=== PATIENT | female | born 1950 | race African-American/Black ===

== ENCOUNTER 2019-11-09 14:51 | Emergency (ER) | payer SELFPAY ==
[2019-11-09 15:03] VITALS: BP 193/99; PULSE 91; TEMP 99.5; BMI 29.0
[2019-11-09] MEDS ORDERED: amLODIPine BESYLATE 5 MG TABLET (FP) PO ONE (15:03)
--- NOTE | 2019-11-09 15:03 | PDOC ---
Rapid Medical Evaluation Chief Complaint: Blood Pressure Problem Time Seen by Provider: 11/09/19 15:00 Medical Evaluation: Allergies Allergy/AdvReac Type Severity Reaction Status Date / Time No Known Allergies Allergy Verified 11/09/19 14:57 11/09/19 15:00 I have performed a brief in-person evaluation of this patient. The patient presents with a chief complaint of: h/o HTN on Ibesartan 150mg and amlodipine 5mg present for refill of blood pressure meds as she is visiting from [place] and ran out of her meds. Denies any symptoms Pertinent physical exam findings: A&O x 3 in NAD. elevated BP 193/99. heart RRR. Lungs CTAB I have ordered the following: amlodipine, The patient will proceed to the ED for further evaluation. Discharge Disposition - Diagnosis Essential hypertension - Discharge Dispostion Condition at time of disposition: Stable - Referrals - Patient Instructions - Post Discharge Activity
--- NOTE | 2019-11-09 15:16 | PDOC ---
History of Present Illness - General Chief Complaint: Blood Pressure Problem Stated Complaint: EVALUATION Time Seen by Provider: 11/09/19 15:00 History Source: Patient Exam Limitations: No Limitations - History of Present Illness Initial Comments: 11/09/19 15:19 69 year old female with Pmhx of HTN DM presenting for medication refill. Pt has been visiting her daughter from [facility] and has run out of meds due to not being able to return home. Pt has been out of meds for 4 days. Pt is currently taking Irbesartan 150 mg HS and Amlodpine 5mg HS for HTN and Metformin for DM 1 000mg BID. Pt has been on these meds for 5 years. Pt has no complaints related to HTN emergency or DKA. Pt otherwise denies: fevers, chills, syncope, lightheadedness, dizziness, headaches, changes in vision, changes in hearing, neck pain, chest pain, shortness of breath, palpitations, back pain, abdominal pain, nausea, vomiting, diarrhea, constipation, melena, hematochezia, dysuria, hematuria, increased urinary frequency/urgency, vaginal bleeding, vaginal discharge. Past History - Medical History Allergies/Adverse Reactions: Allergies Allergy/AdvReac Type Severity Reaction Status Date / Time No Known Allergies Allergy Verified 11/09/19 14:57 Home Medications: Ambulatory Orders Amlodipine Besylate 5 mg PO HS #30 tablet 11/09/19 Irbesartan 150 mg PO HS #30 tablet 11/09/19 Metformin HCl [Glucophage] 1,000 mg PO BID #60 tablet 11/09/19 - Psycho-Social/Smoking History Smoking History: Never smoked Information on smoking cessation initiated: No - Substance Abuse Hx (Audit-C & DAST Scrn) How often the patient has a drink containing alcohol: Never Score: In Men: 4 or > Positive; In Women: 3 or > Positive: 0 Screen Result (Pos requires Nsg. Audit-10AR): Negative Review of Systems - Review of Systems Constitutional: No: Chills, Fever, Night Sweats HEENTM: No: Blurred Vision, Double Vision Respiratory: No: Orthopnea, Shortness of Breath Cardiac (ROS): No: Chest Pain ABD/GI: No: Abdominal Distended, Diarrhea, Nausea, Vomiting : No: Dysuria Musculoskeletal: No: Back Pain, Joint Pain Integumentary: No: Bruising, Change in Color Neurological: No: Headache, Numbness, Paresthesia, Seizure, Dizziness *Physical Exam - Vital Signs Last Vital Signs Temp Pulse Resp BP Pulse Ox 99.5 F 91 H 16 193/99 H 99 11/09/19 14:58 11/09/19 14:58 11/09/19 14:58 11/09/19 14:58 11/09/19 14:58 - Physical Exam 11/09/19 15:28 Gen: AAOx 3, no acute distress, comfortable, no signs of respiratory distress HENT: atraumatic, normocephalic with no laceration or contusion. Nasal mucosa without erythema. Oropharynx without erythema or exudates. Mucous membranes moist. EYES: PERRL, EOM intact, conjunctiva pink NECK: supple; trachea midline; no JVD, no lymphadenopathy, or thyromegaly CV: RRR no murmurs, gallops, or rubs. CHEST: CTA b/l no wheezing, rales or rhonchi ABD: +BS/ND. no TTP; soft, no rebound, no guarding EXTREMITY: no cyanosis or erythema. 2+ dorsalis pedis, posterior tibial, and radial pulse. No pedal edema; no calf swelling or tenderness SKIN: no rash, warm and dry, no diaphoresis HEME: no purpura or ecchymosis NEURO: normal speech, CN II-XII intact, sensation intact, normal gait, no cerebellar deficits MS: 5/5 strength in all extremities, FROM intact in all extremities. Medical Decision Making - Medical Decision Making 11/09/19 15:28 69-year-old female past medical history hypertension diabetes coming in for medication refill patient is hypertensive to 193/99 5 mg amlodipine given in the ED patient is asymptomatic at this time in the ED with no signs of hypertension emergency or urgency Rest of vital signs stable Patient safe and stable for discharge with follow-up with dye weigher either here or at home referrals given Patient instructed on signs and symptoms of hypertensive attention emergency as well as hyperglycemia Supportive care instructions explained and given to pt. Reasons to return emergently to ER explained and given. Importance of follow up with PMD and other specialists as indicated stressed to pt. Pt verbalized understanding of instructions. Pt to follow up with PMD in 2 days. Discharge - Discharge Information Problems reviewed: Yes Clinical Impression/Diagnosis: Essential hypertension Condition: Stable Disposition: HOME - Additional Discharge Information Prescriptions: Amlodipine Besylate 5 mg PO HS #30 tablet Metformin HCl [Glucophage] 1,000 mg PO BID #60 tablet Irbesartan 150 mg PO HS #30 tablet - Follow up/Referral Referrals: Elizabeth Schroeder [Non Staff, Medical] - Liza Tran DO [Non Staff, Medical] - Марина Mccullough MD [Non Staff, Medical] - - Patient Discharge Instructions Patient Printed Discharge Instructions: DI for High Blood Pressure, How to Monitor Your Blood Pressure at Home Additional Instructions: Please see your regular doctor when you return home or schedule an appointment with one of our internists - Post Discharge Activity
[2019-11-09] MEDS ORDERED: amLODIPine BESYLATE 5 MG TABLET (FP) ONE (15:18)
== END 2019-11-09 15:45 | disposition home or self-care (01) ==
LOC: JERFT 14:51
DX: I10 Essential (primary) hypertension (principal)
CPT/HCPCS: 99283-25